=== PATIENT | female | born 1950 | race Caucasian/White ===

== ENCOUNTER 2016-09-19 12:04 | Emergency (ER) | payer OTHER ==
--- NOTE | 2016-09-19 13:12 | RAD ---
HISTORY: Heel pain COMPARISONS: None VIEWS: 3, Frontal, lateral, and oblique views of the right foot FINDINGS: BONE DENSITY: Normal. BONES: There is no displaced fracture. JOINTS: There is no arthropathy. ALIGNMENT: There is no dislocation. SOFT TISSUES: Unremarkable. OTHER FINDINGS: None. IMPRESSION: NO ACUTE OSSEOUS INJURY. IF SYMPTOMS PERSIST, RECOMMEND REPEAT IMAGING.
--- NOTE | 2016-09-19 13:46 | UC ---
Lower Extremity/Ankle HPI - HPI Summary HPI Summary: FIVE DAYS AGO, FELT POPPING SENSATION IN RIGHT HEEL. PAIN RESOLVED FOR THREE DAYS. PAIN RETURNED TWO DAYS AGO, WORSE WITH WEIGHT BEARING. PAIN RADIATES UIP ACHILLES TENDON INTO LEG. FULL ROM NO DEFORMITIES. MILD SWELLING AROUND ANKLE. - History of Current Complaint Chief Complaint: UCLowerExtremity Stated Complaint: FOOT PAIN Time Seen by Provider: 09/19/16 13:13 Hx Obtained From: Patient ?: Yes Onset/Duration: Sudden Onset, Lasting Days, Worse Since - TWO DAYS Severity Initially: Moderate Severity Currently: Moderate Aggravating Factor(s): Standing, Ambulation Alleviating Factor(s): Rest, Elevation Able to Bear Weight: Yes - Risk Factors Gout Risk Factors: Negative DVT Risk Factors: Negative Septic Arthritis Risk Factor: Negative - Allergies/Home Medications Allergies/Adverse Reactions: Allergies Allergy/AdvReac Type Severity Reaction Status Date / Time Erythromycin Allergy Abdominal Verified 09/19/16 12:44 Pain Home Medications: Home Medications Bisoprolol & Hydrochlorothiazi [Ziac 5-6.25 mg-] 1 tab PO DAILY 09/19/16 [ History Confirmed 09/19/16] Omeprazole CAP* [Prilosec CAP* 20 MG] 20 mg PO DAILY 09/19/16 [History Confirmed 09/19/16] PMH/Surg Hx/FS Hx/Imm Hx Previously Healthy: Yes - Surgical History Surgical History: Yes Surgery Procedure, Year, and Place: nasal - Family History Known Family History: Negative: Other - NO JOINT LAXITY - Social History Occupation: Employed Full-time Alcohol Use: Occasionally Substance Use Type: None Smoking Status (MU): Never Smoked Tobacco Review of Systems Constitutional: Negative Skin: Negative Eyes: Negative ENT: Negative Respiratory: Negative Cardiovascular: Negative Gastrointestinal: Negative Genitourinary: Negative Motor: Negative Neurovascular: Negative Musculoskeletal: Arthralgia, Myalgia Neurological: Negative Psychological: Negative All Other Systems Reviewed And Are Negative: Yes Physical Exam Triage Information Reviewed: Yes Appearance: Well-Appearing, No Pain Distress, Well-Nourished Vital Signs: Initial Vital Signs Temp 97.3 F 09/19/16 12:40 Pulse 58 09/19/16 12:40 Resp 16 09/19/16 12:40 BP 129/82 09/19/16 12:40 Pulse Ox 98 09/19/16 12:40 Vital Signs Reviewed: Yes Eye Exam: Normal ENT Exam: Normal ENT: Positive: Normal ENT inspection, TMs normal Dental Exam: Normal Neck exam: Normal Neck: Positive: Supple, Nontender, No Lymphadenopathy Respiratory Exam: Normal Respiratory: Positive: Chest non-tender, Lungs clear, Normal breath sounds, No respiratory distress, No accessory muscle use Cardiovascular Exam: Normal Cardiovascular: Positive: RRR, No Murmur, Pulses Normal Abdominal Exam: Normal Musculoskeletal: Positive: Strength Intact, ROM Intact, Edema @ - MILD RIGHT LATERAL ANKLE, Other: - TENDERNESS AT RIGHT ACHILLES TENDON, NO DEFORMITY NOTED , FULL ROM Neurological Exam: Normal Psychological Exam: Normal Skin Exam: Normal Lower Extremity Course/Dx - Differential Dx/Diagnosis Differential Diagnosis/HQI/PQRI: Fracture (Closed), Sprain, Strain, Tendonitis Provider Diagnoses: RIGHT ACHILLES TENDONITIS Discharge - Discharge Plan Condition: Stable Disposition: HOME Patient Education Materials: Achilles Tendinitis (ED) Forms: *Work Release Referrals: Alec Valdivia MD [Medical Doctor] - As Soon As Possible
== END 2016-09-19 13:47 | disposition home or self-care (01) ==
LOC: UCEAST 12:04
DX: M76.61 Achilles tendinitis, right leg (principal); Z88.1 Allergy status to other antibiotic agents
CPT/HCPCS: 99203; G0463